=== PATIENT | female | born 1975 | race Caucasian/White ===

== ENCOUNTER 2017-05-17 13:34 | Emergency (ER) | payer OTHER, MEDICAID ==
[2017-05-17 13:45] VITALS: BP 124/83
--- NOTE | 2017-05-17 13:46 | ED Physician Documentation ---
PD HPI UPPER EXT INJURY - Stated complaint Stated Complaint: HAND INJURY - Chief complaint Chief Complaint: Trauma Ext - History obtained from History obtained from: Patient - History of Present Illness Location: Other (She hit the right hand on a piece of furniture the other day. Pain was only mild until today now she has severe pain and swelling especially over the radial side carpals. Tried Percocet without relief.) Review of Systems Constitutional: reports: Reviewed and negative Throat: reports: Reviewed and negative Cardiac: reports: Reviewed and negative Respiratory: reports: Reviewed and negative PD PAST MEDICAL HISTORY - Past Medical History Cardiovascular: None Respiratory: None Neuro: None Endocrine/Autoimmune: None GI: None : Chronic bladder infection HEENT: None Psych: Depression Musculoskeletal: None Derm: None - Past Surgical History Past Surgical History: Yes HEENT: Myringotomy (tubes), Tonsil/Adenoidectomy - Present Medications Home Medications: Ambulatory Orders Medication Instructions Recorded Confirmed Brexpiprazole [Rexulti] 1 mg 01/09/16 Oxycodone HCl/Acetaminophen 1 - 2 each PO Q6H PRN #14 tablet 01/09/16 05/17/17 [Percocet 5-325 mg Tablet] Venlafaxine [Effexor] 150 mg 01/09/16 Brexpiprazole [Rexulti] 1 mg PO DAILY 02/04/17 05/17/17 Terbinafine [LamISIL] 250 mg PO DAILY 02/04/17 05/17/17 Venlafaxine ER [Effexor ER] 150 mg PO DAILY 02/04/17 05/17/17 Meloxicam [Mobic] 7.5 mg PO BIDWM PRN #15 tablet 05/17/17 - Allergies Allergies/Adverse Reactions: Allergies Allergy/AdvReac Type Severity Reaction Status Date / Time ibuprofen Allergy Rash Verified 02/07/17 09:43 - Social History Does the pt smoke?: Yes Smoking Status: Current every day smoker Does the pt drink ETOH?: Yes Does the pt have substance abuse?: No - Immunizations Immunizations are current?: Yes - POLST Patient has POLST: No PD ED PE NORMAL - Vitals Vital signs reviewed: Yes - General General: Alert and oriented X 3, No acute distress - Extremities Extremities: Other (Quite tender and swollen over the dorsum of the hand proximally on the radial side with difficulty with flexion and extension at the wrist and even a lot of pain with motion of the fingers, she has normal sensation and cap refill in all the fingers.) - Neuro Neuro: Alert and oriented X 3, Normal speech - Psych Psych: Normal mood, Normal affect Results - Vitals Vitals: Vital Signs - 24 hr 05/17/17 13:38 Temperature 36.7 C Heart Rate 90 Respiratory 20 Rate Blood Pressure 124/83 H O2 Saturation 100 Oxygen O2 Source Room air - Labs Labs: Laboratory Tests 05/17/17 05/17/17 05/17/17 14:10 14:10 14:10 WBC 8.0 RBC 4.29 Hgb 13.6 Hct 38.5 MCV 89.7 MCH 31.8 H MCHC 35.4 RDW 11.9 L Plt Count 308 MPV 6.7 L Neut # 4.4 Lymph # 2.9 Kershaw # 0.5 Eos # 0.0 Baso # 0.1 Absolute Nucleated RBC 0.00 Nucleated RBC % 0.0 ESR 18 Sodium 136 Potassium 3.6 Chloride 99 L Carbon Dioxide 27 Anion Gap 10.0 BUN 12 Creatinine 0.5 Estimated GFR (MDRD) 136 Glucose 99 Calcium 9.5 Total Bilirubin 0.4 AST 17 ALT 12 Alkaline Phosphatase 52 C-Reactive Protein < 1.0 Total Protein 8.2 Albumin 4.9 Globulin 3.3 Albumin/Globulin Ratio 1.5 Lipase 23 - Rads (name of study) 3 views of the right hand Radiology: EMP read contemporaneously (Normal) Procedures - Splint (location) Thumb Spica Splint applied by: Tech Type of splint: Fiberglass, Short arm Other: Patient tolerated well, No complications, Neurovascular intact - Regional nerve block Nerve block site: Ulnar, Median, Radial Right / left: Right Nerve block anesthesia: Marcaine 0.5% Nerve block aftercare: Other (Started with the radial nerve only, that helped a lot with her pain but then increased to come pain over on the ulnar nerve distributions of the ulnar and median nerves were blocked that point.) PD MEDICAL DECISION MAKING - ED course ED course: 41-year-old woman presents with severe hand pain in the area of the carpals after a minor injury and pain was only mild at first but now severe after a 2 day delay. She was histrionic on examination but quite comfortable after a block of the 3 nerves of the hand with Marcaine. Initially only the radial nerve was blocked but then she complained of increased pain in the ulnar distribution so the other 2 nerves were blocked with excellent relief of her pain. Given the severity of her pain and on time course inflammatory markers were also checked without relevant findings. She was placed in a splint for comfort. Note made that per the INDUSTRIAL ENGINEER she has been on Suboxone recently. She did not admit this until prompted. Admits she has a history of pain medication abuse and after discussion declined home-going narcotics. Departure - Departure Disposition: , Self Care Clinical Impression: Hand sprain Qualifiers: Encounter type: initial encounter Laterality: right Qualified Code(s): S63.91XA - Sprain of unspecified part of right wrist and hand, initial encounter Condition: Good Record reviewed to determine appropriate education?: Yes Instructions: ED Sprain Hand Follow-Up: [facility] [Provider Group] Prescriptions: Meloxicam [Mobic] 7.5 mg PO BIDWM PRN #15 tablet PRN Reason: Pain Comments: As discussed, given the severity of your pain let us keep it in fiberglass and do not remove the splint until you follow-up with the orthopedic office. Call them tomorrow for an appointment. Return if worse. Keep it elevated. Discharge Date/Time: 05/17/17 15:25
[2017-05-17] MEDS ORDERED: BUPIVACAINE 0.5%-EPI 1:200000 PF 10 ML VIAL SUBQ STA (13:49)
[2017-05-17] MEDS ORDERED: BUPIVACAINE 0.5%-EPI 1:200000 PF 30 ML VIAL SUBQ STA (13:56)
[2017-05-17] MEDS ORDERED: HYDROmorphone 1 MG/ML SYRINGE IVP STA (14:01)
[2017-05-17 14:15] LABS: BASOPHILS # (AUTO) 0.1 10^3/uL (0.0-0.1); BASOPHILS % (AUTO) 0.6 %; EOSINOPHILS % (AUTO) 0.6 %; HCT - HEMATOCRIT 38.5 % (37.0-47.0); HGB - HEMOGLOBIN 13.6 g/dL (12.0-16.0); LYMPHOCYTES # (AUTO) 2.9 10^3/uL (1.5-3.5); LYMPHOCYTES % (AUTO) 36.6 %; MEAN CORPUSCULAR HEMOGLOBIN 31.8 pg (27.0-31.0); MEAN CORPUSCULAR HGB CONC 35.4 g/dL (32.0-36.0); MEAN CORPUSCULAR VOLUME 89.7 fL (81.0-99.0); MEAN PLATELET VOLUME 6.7 fL (7.9-10.8); MONOCYTES # (AUTO) 0.5 10^3/uL (0.0-1.0); MONOCYTES % (AUTO) 6.7 %; NEUTROPHILS # (AUTO) 4.4 10^3/uL (1.5-6.6); NEUTROPHILS % (AUTO) 55.5 %; RED BLOOD COUNT 4.29 10^6/uL (4.20-5.40); RED CELL DISTRIBUTION WIDTH 11.9 % (12.0-15.0)
[2017-05-17 14:30] LABS: ALBUMIN/GLOBULIN RATIO 1.5 (1.0-2.2); BILIRUBIN,TOTAL 0.4 mg/dL (0.2-1.0); BUN - BLOOD UREA NITROGEN 12 mg/dL (6-20); CALCIUM 9.5 mg/dL (8.5-10.3); CARBON DIOXIDE - CO2 27 mmol/L (21-32); CHLORIDE 99 mmol/L (101-111); CREATININE 0.5 mg/dL (0.4-1.0); GFR - MDRD 136 (>89); GLUCOSE 99 mg/dL (70-100); LIPASE 23 U/L (22-51); POTASSIUM 3.6 mmol/L (3.5-5.0); SODIUM 136 mmol/L (135-145); TOTAL PROTEIN 8.2 g/dL (6.7-8.2)
--- NOTE | 2017-05-17 15:07 | XRAY Preliminary Report ---
Exam: XR HAND 3 VIEW RT IMPRESSION: Negative right hand [facility] SITE ID: [id number]
--- NOTE | 2017-05-17 15:10 | XRAY Report ---
EXAM: RIGHT HAND RADIOGRAPHY EXAM DATE: 05/17/2017 02:29 PM. CLINICAL HISTORY: Pain. COMPARISON: None. TECHNIQUE: 3 views. FINDINGS: Bones: Normal. No fractures or bone lesions. Joints: Normal. No subluxations. Soft Tissues: Normal. No soft tissue swelling. IMPRESSION: Negative right hand RADIA Referring Provider Line: [phone] SITE ID: [id number]
[2017-05-17] MEDS ORDERED: oxyCODONE/ACET 5/325 Prepack 4 PO ONE (16:00)
[2017-05-17] MEDS ORDERED: HYDROcod/ACET 5/325 Prepack 6 PO ONE (16:00)
== END 2017-05-17 15:25 | disposition home or self-care (01) ==
LOC: ED 13:34
DX: S63.91XA Sprain of unspecified part of right wrist and hand, initial encounter (principal); W22.03XA Walked into furniture, initial encounter; F17.200 Nicotine dependence, unspecified, uncomplicated
CPT/HCPCS: 29125; 36415; 64450; 80053; 83690; 85025; 85651; 86140; 99283

== ENCOUNTER 2017-12-06 17:19 | Outpatient (CLI) | payer OTHER, MEDICAID | END 2017-12-06 17:20 | disposition critical access hospital (66) | LOC: EMS 17:19 | PROVIDERS: ATTEND Surgery | DX: R45.851 Suicidal ideations (principal); R06.4 Hyperventilation; F32.9 Major depressive disorder, single episode, unspecified; R20.0 Anesthesia of skin | CPT/HCPCS: A0425; A0429 ==

== ENCOUNTER 2017-12-06 17:54 | Emergency (ER) | payer OTHER, MEDICAID ==
[2017-12-06 18:49] LABS: ALBUMIN 4.3 g/dL (3.2-5.5); ALBUMIN/GLOBULIN RATIO 1.1 (1.0-2.2); ALKALINE PHOSPHATASE 53 IU/L (42-121); ALT ALANINE AMINOTRANSFERASE 15 IU/L (10-60); AST ASPARTATE AMINOTRANSFERASE 19 IU/L (10-42); BUN - BLOOD UREA NITROGEN 12 mg/dL (6-20); CALCIUM 9.5 mg/dL (8.5-10.3); CARBON DIOXIDE - CO2 22 mmol/L (21-32); CHLORIDE 105 mmol/L (101-111); CREATININE 0.7 mg/dL (0.4-1.0); GFR - MDRD 92 (>89); GLUCOSE 96 mg/dL (70-100); LIPASE 28 U/L (22-51); SALICYLATE < 6.0 mg/dL; SODIUM 137 mmol/L (135-145); TOTAL PROTEIN 8.1 g/dL (6.7-8.2)
[2017-12-06 18:50] LABS: ACETAMINOPHEN < 10 ug/mL (10-30)
[2017-12-06 20:59] LABS: BASOPHILS % (AUTO) 1.4 %; EOSINOPHILS % (AUTO) 0.1 %; HGB - HEMOGLOBIN 14.1 g/dL (12.0-16.0); LYMPHOCYTES % (AUTO) 23.7 %; MEAN CORPUSCULAR HEMOGLOBIN 30.9 pg (27.0-31.0); MEAN CORPUSCULAR HGB CONC 33.4 g/dL (32.0-36.0); MEAN CORPUSCULAR VOLUME 92.5 fL (81.0-99.0); MEAN PLATELET VOLUME 7.5 fL (7.9-10.8); NEUTROPHILS % (AUTO) 68.8 %; PLT - PLATELET COUNT 341 10^3/uL (130-450); RED BLOOD COUNT 4.55 10^6/uL (4.20-5.40); RED CELL DISTRIBUTION WIDTH 11.9 % (12.0-15.0); WHITE BLOOD COUNT 4.3 x10^3/uL (4.8-10.8)
[2017-12-06 21:01] LABS: ABNORMAL LYMPHS % (MANUAL) 0 %; BAND NEUTROPHILS % (MANUAL) 0 %
[2017-12-06 21:16] LABS: DIFFERENTIAL COMMENT MANUAL DIFFERENTIAL; LYMPHOCYTES # (MANUAL) 1.3 10^3/uL (1.5-3.5); LYMPHOCYTES % (MANUAL) 30 %; MONOCYTES # (MANUAL) 0.1 10^3/uL (0.0-1.0); NEUTROPHILS # (MANUAL) 2.8 10^3/uL (1.5-6.6); NEUTROPHILS % (MANUAL) 66 %; PLATELET ESTIMATE, MANUAL NORMAL (130-450,000) (NORMAL); PLATELET MORPHOLOGY NORMAL APPEARANCE (NORMAL); RBC MORPHOLOGY (MULTIPLE) NORMAL APPEARANCE (NORMAL)
--- NOTE | 2017-12-06 22:22 | ED Physician Documentation ---
PD HPI MHE - History obtained from History obtained from: Patient, EMS - History of Present Illness Primary symptom: Suicidal ideation, Depression, Off meds Timing - onset: Today Contributing factors: Off meds Similar symptoms before: Work up / diagnostics, Treatment Recently seen: Not recently seen <Martín Peguero - Last Filed: 12/06/17 23:23> <Maxx Kan - Last Filed: 12/07/17 14:32> - Stated complaint Stated Complaint: MHE - Chief complaint Chief Complaint: General - Additional information Additional information: Patient is a 42 year old female with a history of anxiety and depression who is presenting to the emergency department for depression and suicidal ideation. patient states that she has been changing her antidepressents. patient reports numbness and tingling and also states that she wants to kill herself. Patient states that her specific plan would be to hang herself. 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 She feels that her antidepressant has stopped working and she is on 2 different antidepressants. She is tapering down off of Effexor now getting ready to start on some lithium. She is treated by her primary care physician. Last night the patient had numbness of her hands and feet and carpopedal spasm and this has since resolved. She repeats that she feels "scared "and is suicidal with the thought that she would like to hang herself. She states that her depression is never been this bad previously. She has never been hospitalized previously. She is open to the possibility of hospitalization. She lives with her who works from 11 to midnight and hardly ever home. She has a college aged son. She indicates there is no situational depression with this and no specific incident inciting the worsening of her depression. (Maxx Kan) Review of Systems Ten Systems: 10 systems reviewed and negative Constitutional: denies: Fever, Chills Neurologic: reports: Numbness Psychiatric: reports: Depressed, Suicidal <Martín Peguero - Last Filed: 12/06/17 23:23> PD PAST MEDICAL HISTORY - Past Medical History Past Medical History: Yes Cardiovascular: None Respiratory: None Endocrine/Autoimmune: None GI: None : Chronic bladder infection HEENT: None Psych: Depression Musculoskeletal: None Derm: None - Past Surgical History Past Surgical History: Yes HEENT: Myringotomy (tubes), Tonsil/Adenoidectomy - Social History Does the pt smoke?: Yes Smoking Status: Current every day smoker Does the pt drink ETOH?: Yes Does the pt have substance abuse?: No - Immunizations Immunizations are current?: Yes - POLST Patient has POLST: No <Martín Peguero - Last Filed: 12/06/17 23:23> <Maxx Kan - Last Filed: 12/07/17 14:32> - Present Medications Home Medications: Ambulatory Orders Medication Instructions Recorded Confirmed Venlafaxine [Effexor] 37.5 mg ORAL DAILY 01/09/16 Brexpiprazole [Rexulti] 1 mg PO DAILY 02/04/17 05/17/17 Amphet/Dextr 15 mg ORAL DAILY 12/06/17 - Allergies Allergies/Adverse Reactions: Allergies Allergy/AdvReac Type Severity Reaction Status Date / Time ibuprofen AdvReac Rash Verified 12/06/17 17:58 PD ED PE NORMAL - Vitals Vital signs reviewed: Yes - General General: Alert and oriented X 3 - HEENT HEENT: Atraumatic - Cardiac Cardiac: RRR - Respiratory Respiratory: No respiratory distress - Derm Derm: Normal color, Warm and dry - Extremities Extremities: No deformity, Normal ROM s pain - Neuro Neuro: Alert and oriented X 3, No motor deficit, No sensory deficit, Normal speech Eye Opening: Spontaneous Motor: Obeys Commands Verbal: Oriented GCS Score: 15 <Martín Peguero - Last Filed: 12/06/17 23:23> - Vitals Vital signs reviewed: Yes (normal ) - General General: Alert and oriented X 3, No acute distress, Well developed/nourished - HEENT HEENT: Atraumatic, PERRL, EOMI, Other (tympanosclerosis is present bilaterally without inflamation ) - Neck Neck: Supple, no meningeal sign, No bony TTP - Cardiac Cardiac: RRR, No murmur - Respiratory Respiratory: Clear bilaterally - Abdomen Abdomen: Soft, Non tender - Back Back: No CVA TTP, No spinal TTP - Psych Psych: Other (mood is frightened affect is flat) <Maxx Kan - Last Filed: 12/07/17 14:32> PD ED PE EXPANDED - Psych Psych: Depressed, Suicidal, Tearful, Withdrawn <Martín Peguero Eyad - Last Filed: 12/06/17 23:23> Results <Martín Peguero Eyad - Last Filed: 12/06/17 23:23> <LoretaMaxx Kim - Last Filed: 12/07/17 14:32> - Vitals Vitals: Vital Signs - 24 hr 12/06/17 12/07/17 12/07/17 17:58 01:15 12:00 Temperature 36.4 C L Heart Rate 88 84 76 Respiratory 20 16 15 Rate Blood Pressure 112/78 113/75 116/73 O2 Saturation 99 98 99 Oxygen O2 Source Room air - Labs Labs: Laboratory Tests 12/06/17 12/06/17 12/07/17 18:32 18:32 08:50 WBC 4.3 L RBC 4.55 Hgb 14.1 Hct 42.1 MCV 92.5 MCH 30.9 MCHC 33.4 RDW 11.9 L Plt Count 341 MPV 7.5 L Neut # (Auto) Not Reportable Lymph # (Auto) Not Reportable Dawson # (Auto) Not Reportable Eos # (Auto) Not Reportable Baso # (Auto) Not Reportable Absolute Nucleated RBC Not Reportable Total Counted 100 Band Neuts % (Manual) 0 Abnorm Lymph % (Manual) 0 Nucleated RBC % Not Reportable Neutrophils # (Manual) 2.8 Lymphocytes # (Manual) 1.3 L Monocytes # (Manual) 0.1 Eosinophils # (Manual) 0.0 Basophils # (Manual) 0.0 Differential Comment MANUAL DIFFERENTIAL Manual Slide Review Indicated WBC Morphology NORMAL APPEARANCE Platelet Estimate NORMAL (130-450,000) Platelet Morphology NORMAL APPEARANCE RBC Morph Micro Appear NORMAL APPEARANCE Sodium 137 Potassium 3.3 L Chloride 105 Carbon Dioxide 22 Anion Gap 10.0 BUN 12 Creatinine 0.7 Estimated GFR (MDRD) 92 Glucose 96 Calcium 9.5 Total Bilirubin 1.0 AST 19 ALT 15 Alkaline Phosphatase 53 Total Protein 8.1 Albumin 4.3 Globulin 3.8 Albumin/Globulin Ratio 1.1 Lipase 28 Urine Color Urine Clarity Urine pH Ur Specific Zenia Urine Protein Urine Glucose (UA) Urine Ketones Urine Occult Blood Urine Nitrite Urine Bilirubin Urine Urobilinogen Ur Leukocyte Esterase Ur Microscopic Review Urine Culture Comments Urine HCG, Qual Salicylates < 6.0 Urine Opiates Screen NEGATIVE Ur Oxycodone Screen POSITIVE H Urine Methadone Screen NEGATIVE Ur Propoxyphene Screen NEGATIVE Acetaminophen < 10 L Ur Barbiturates Screen NEGATIVE Ur Tricyclics Screen NEGATIVE Ur Phencyclidine Scrn NEGATIVE Ur Amphetamine Screen POSITIVE H U Methamphetamines Scrn NEGATIVE U Benzodiazepines Scrn NEGATIVE Urine Cocaine Screen NEGATIVE U Cannabinoids Screen NEGATIVE Ethyl Alcohol < 5.0 12/07/17 12/07/17 08:50 08:50 WBC RBC Hgb Hct MCV MCH MCHC RDW Plt Count MPV Neut # (Auto) Lymph # (Auto) Dawson # (Auto) Eos # (Auto) Baso # (Auto) Absolute Nucleated RBC Total Counted Band Neuts % (Manual) Abnorm Lymph % (Manual) Nucleated RBC % Neutrophils # (Manual) Lymphocytes # (Manual) Monocytes # (Manual) Eosinophils # (Manual) Basophils # (Manual) Differential Comment Manual Slide Review WBC Morphology Platelet Estimate Platelet Morphology RBC Morph Micro Appear Sodium Potassium Chloride Carbon Dioxide Anion Gap BUN Creatinine Estimated GFR (MDRD) Glucose Calcium Total Bilirubin AST ALT Alkaline Phosphatase Total Protein Albumin Globulin Albumin/Globulin Ratio Lipase Urine Color YELLOW Urine Clarity CLEAR Urine pH 6.0 Ur Specific Zenia 1.025 1.025 Urine Protein NEGATIVE Urine Glucose (UA) NEGATIVE Urine Ketones >=80 H Urine Occult Blood NEGATIVE Urine Nitrite NEGATIVE Urine Bilirubin NEGATIVE Urine Urobilinogen 0.2 (NORMAL) Ur Leukocyte Esterase NEGATIVE Ur Microscopic Review NOT INDICATED Urine Culture Comments NOT INDICATED Urine HCG, Qual NEGATIVE Salicylates Urine Opiates Screen Ur Oxycodone Screen Urine Methadone Screen Ur Propoxyphene Screen Acetaminophen Ur Barbiturates Screen Ur Tricyclics Screen Ur Phencyclidine Scrn Ur Amphetamine Screen U Methamphetamines Scrn U Benzodiazepines Scrn Urine Cocaine Screen U Cannabinoids Screen Ethyl Alcohol PD MEDICAL DECISION MAKING <Martín Peguero - Last Filed: 12/06/17 23:23> - ED course Complexity details: reviewed old records, reviewed results, re-evaluated patient , considered differential, d/w patient <Maxx Kan - Last Filed: 12/07/17 14:32> - ED course ED course: 42-year-old female with history of endogenous depression has worsening of her depression and acute suicidal ideation. She has failed treatment with multiple antidepressant agents and is in the process of switching agents now. She has treatment resistant depression. (Maxx Kan) - Sepsis Event Vital Signs: Vital Signs - 24 hr 12/06/17 12/07/17 12/07/17 17:58 01:15 12:00 Temperature 36.4 C L Heart Rate 88 84 76 Respiratory 20 16 15 Rate Blood Pressure 112/78 113/75 116/73 O2 Saturation 99 98 99 Oxygen O2 Source Room air Departure <Martín Peguero - Last Filed: 12/06/17 23:23> <Maxx Kan - Last Filed: 12/07/17 14:32> - Departure Disposition: 65 Psych Hosp/Unit DC/Xfer Clinical Impression: Suicidal ideation Depression Qualifiers: Depression Type: major depressive disorder Major depression recurrence: recurrent Active/Remission status: currently active Major depression episode severity: severe Condition: Stable
[2017-12-07] MEDS ORDERED: ACETAMINOPHEN 325 MG TABLET PO STA (01:39)
--- NOTE | 2017-12-07 05:10 | ED Physician Documentation ---
ED Addendum - Addendum Addendum: 12/07/17 05:08 The patient's care was turned over to me by the off going physician, the patient currently is pending evaluation by social work. The patient was medically evaluated by the prior physician. The patient has been stable throughout the evening and has had no issues. The patient's care will be turned over to the oncoming physician Dr. Kan for final disposition per social work's recommendations.
[2017-12-07] MEDS ORDERED: LORazepam 0.5 MG TABLET PO STA ×3 (09:00→15:16)
[2017-12-07 09:19] LABS: GLUCOSE, URINE (UA) NEGATIVE (NEGATIVE); KETONES,URINE (UA) >=80 mg/dL (NEGATIVE); LEUKOCYTE ESTERASE, URINE NEGATIVE (NEGATIVE); NITRITE,URINE NEGATIVE (NEGATIVE); OCCULT BLOOD,URINE NEGATIVE (NEGATIVE); PROTEIN,URINE NEGATIVE (NEGATIVE); UROBILINOGEN,URINE 0.2 (NORMAL) E.U./dL (NORMAL)
[2017-12-07 09:20] LABS: MUDS CUTOFF CONCENTRATIONS CUTOFF CONC BELOW:
[2017-12-07 09:23] LABS: BILIRUBIN,URINE NEGATIVE (NEGATIVE); CLARITY,URINE CLEAR (CLEAR); HCG UR QUAL NEGATIVE; ICTOTEST,URINE NEGATIVE
[2017-12-07 09:31] LABS: AMPHETAMINE SCREEN,URINE POSITIVE (NEGATIVE); COCAINE SCREEN URINE NEGATIVE (NEGATIVE); METHAMPHETAMINES SCREEN, URINE NEGATIVE (NEGATIVE); OPIATE SCREEN, URINE NEGATIVE (NEGATIVE)
[2017-12-07 09:32] LABS: BENZODIAZEPINES SCREEN, URINE NEGATIVE (NEGATIVE); METHADONE SCREEN, URINE NEGATIVE (NEGATIVE); OXYCODONE SCREEN, URINE POSITIVE (NEGATIVE); PROPOXYPHENE SCREEN, URINE NEGATIVE (NEGATIVE); TRICYCLIC ANTIDEPRESSANT,URINE NEGATIVE (NEGATIVE)
[2017-12-07] MEDS ORDERED: VENLAFAXINE 37.5 MG TABLET PO STA (11:30)
[2017-12-07 12:16] VITALS: BP 116/73
== END 2017-12-07 16:21 ==
LOC: EDBD → EDUNIT# → SUPCPDRO 17:54 → ED 17:54
DX: R45.851 Suicidal ideations (principal); F32.9 Major depressive disorder, single episode, unspecified
CPT/HCPCS: 36415; 80053; 80306; 80307; 80320; 80329; 81003; 81025; 83690; 85025; 99283; 99284; A9270; 81001; 87086

== ENCOUNTER 2018-01-25 14:12 | Outpatient (CLI) | payer OTHER ==
[2018-01-25 17:33] LABS: LITHIUM 0.96 mmol/L
== END 2018-01-25 14:13 | disposition home or self-care (01) ==
LOC: LAB.F 14:12
PROVIDERS: ATTEND Nurse Practitioner Family
DX: F31.9 Bipolar disorder, unspecified (principal); Z79.899 Other long term (current) drug therapy
CPT/HCPCS: 36415; 80178

== ENCOUNTER 2018-02-16 02:56 | Emergency (ER) | payer OTHER ==
--- NOTE | 2018-02-16 04:04 | ED Physician Documentation ---
History of Present Illness - Stated complaint Stated Complaint: MED WITHDRAWAL - Chief complaint Chief Complaint: General - History obtained from History obtained from: Patient - History of Present Illness Timing: Today Improved by: nothing Worsened by: nothing - Additonal information Additional information: patient states she has been using fentanyl, obtained on the street, for approximately the past week. She said she saw a doctor in a clinic in [place] yesterday, was prescribed Suboxone, took first dose approximately 130 this morning. She says I think I took it too early, Im in acute withdrawal. She complains of generalized anxiety, agitation, insomnia. Of note, she presents with a friend who is also registered at this time as an emergency department patient for the exact same HPI. Review of Systems Constitutional: reports: Chills, Myalgias, Sweats Cardiac: reports: Reviewed and negative Respiratory: reports: Reviewed and negative GI: denies: Abdominal Pain, Nausea, Vomiting, Diarrhea Neurologic: denies: Altered mental status, Headache Psychiatric: reports: Anxiety, Insomnia. denies: Suicidal, Hallucinations, Delusions PD PAST MEDICAL HISTORY - Past Medical History Cardiovascular: None Respiratory: None Endocrine/Autoimmune: None GI: None : Chronic bladder infection HEENT: None Psych: Depression Musculoskeletal: None Derm: None - Past Surgical History Past Surgical History: Yes HEENT: Myringotomy (tubes), Tonsil/Adenoidectomy - Present Medications Home Medications: Ambulatory Orders Medication Instructions Recorded Confirmed Venlafaxine [Effexor] 37.5 mg ORAL DAILY 01/09/16 Brexpiprazole [Rexulti] 1 mg PO DAILY 02/04/17 05/17/17 Amphet/Dextr 15 mg ORAL DAILY 12/06/17 LORazepam [Lorazepam] 1 - 2 mg PO TID PRN #14 tablet 02/16/18 - Allergies Allergies/Adverse Reactions: Allergies Allergy/AdvReac Type Severity Reaction Status Date / Time ibuprofen AdvReac Rash Verified 02/16/18 03:15 - Social History Does the pt smoke?: Yes Smoking Status: Current every day smoker Does the pt drink ETOH?: Yes Does the pt have substance abuse?: Yes Substance Use and Type: Other - Immunizations Immunizations are current?: Yes - POLST Patient has POLST: No PD ED PE NORMAL - Vitals Vital signs reviewed: Yes - General General: Alert and oriented X 3, Well developed/nourished, Other (appears very anxious, alternates between hypokinetic and then thrashing briefly.) - HEENT HEENT: PERRL, EOMI, Moist mucous membranes - Cardiac Cardiac: RRR, No murmur - Respiratory Respiratory: No respiratory distress, Clear bilaterally - Abdomen Abdomen: Soft, Non tender - Neuro Neuro: Alert and oriented X 3, Normal speech Eye Opening: Spontaneous Motor: Obeys Commands Verbal: Oriented GCS Score: 15 Results - Vitals Vitals: Oxygen O2 Source Room air PD MEDICAL DECISION MAKING - ED course Complexity details: considered differential, d/w patient ED course: given IM ativan, po clonidine with excellent results. on reevaluation, she is drowsy but arousable to verbal. she feels well enough for discharge, NAD, seems appreciative and comfortable with plan. she did not bargain or argue over medications nor dosing. - Sepsis Event Vital Signs: Oxygen O2 Source Room air Departure - Departure Disposition: 01 Home, Self Care Clinical Impression: Withdrawal from opioids Condition: Good Instructions: ED Withdrawal Narcotic Follow-Up: [facility] [Provider Group] [facility] [Provider Group] Prescriptions: LORazepam [Lorazepam] 1 - 2 mg PO TID PRN #14 tablet PRN Reason: Anxiety Discharge Date/Time: 02/16/18 06:20
[2018-02-16] MEDS ORDERED: cloNIDine 0.1 MG TABLET PO STA (04:12)
[2018-02-16] MEDS ORDERED: LORazepam 2 MG/ML VIAL IM STA (04:13)
[2018-02-16 06:40] VITALS: BP 106/76
== END 2018-02-16 06:20 | disposition home or self-care (01) ==
LOC: ED 02:56
DX: F11.23 Opioid dependence with withdrawal (principal); F17.200 Nicotine dependence, unspecified, uncomplicated
CPT/HCPCS: 96372; 99283; A9270; J2060

== ENCOUNTER 2018-05-04 22:26 | Emergency (ER) | payer OTHER, MEDICAID ==
--- NOTE | 2018-05-04 22:39 | ED Physician Documentation ---
History of Present Illness - Stated complaint Stated Complaint: POSS WITHDRAWAL - Chief complaint Chief Complaint: MHE - Additonal information Additional information: 42-year-old female presents the emergency department complaining of anxiety secondary to feeling like she is going through withdrawal. The patient takes Suboxone daily and attempted to get high with fentanyl this evening. The patient reports now being in withdrawal. The patient reports feeling very anxious and like her insides are too hot. Going through withdrawal makes the patient feels suicidal. Symptoms are described as moderate. No other associated symptoms. No relieving factors. Review of Systems Constitutional: denies: Fever, Chills Eyes: denies: Discharge Ears: denies: Ear pain Nose: denies: Congestion Throat: denies: Dental pain / toothache, Oral lesions / sores Respiratory: denies: Cough GI: reports: Nausea : denies: Dysuria Musculoskeletal: denies: Neck pain Neurologic: denies: Generalized weakness Psychiatric: reports: Suicidal, Anxiety PD PAST MEDICAL HISTORY - Past Medical History Cardiovascular: None Respiratory: None Endocrine/Autoimmune: None GI: None : Chronic bladder infection HEENT: None Psych: Depression Musculoskeletal: None Derm: None - Past Surgical History Past Surgical History: Yes HEENT: Myringotomy (tubes), Tonsil/Adenoidectomy - Present Medications Home Medications: Ambulatory Orders Medication Instructions Recorded Confirmed Venlafaxine [Effexor] 37.5 mg ORAL DAILY 01/09/16 Brexpiprazole [Rexulti] 1 mg PO DAILY 02/04/17 05/17/17 Amphet/Dextr 15 mg ORAL DAILY 12/06/17 LORazepam [Lorazepam] 1 - 2 mg PO TID PRN #14 tablet 02/16/18 - Allergies Allergies/Adverse Reactions: Allergies Allergy/AdvReac Type Severity Reaction Status Date / Time ibuprofen AdvReac Rash Verified 05/04/18 22:34 - Social History Does the pt smoke?: Yes Smoking Status: Current every day smoker Does the pt drink ETOH?: Yes Does the pt have substance abuse?: Yes - Immunizations Immunizations are current?: Yes - POLST Patient has POLST: No PD ED PE NORMAL - General General: Alert and oriented X 3 - HEENT HEENT: Atraumatic, PERRL, EOMI, Ears normal - Neck Neck: Supple, no meningeal sign - Cardiac Cardiac: RRR, Strong equal pulses - Respiratory Respiratory: No respiratory distress - Abdomen Abdomen: Soft, Non tender - Derm Derm: Normal color - Extremities Extremities: No deformity - Neuro Neuro: Alert and oriented X 3, fibrous wallboard inspector 2-12 intact, No motor deficit, Normal speech PD ED PE EXPANDED - Psych Psych: Anxious, Agitated, Pressured speech Results - Vitals Vitals: Vital Signs - 24 hr 05/04/18 22:29 Temperature 36.2 C L Heart Rate 100 Respiratory 24 Rate Blood Pressure 142/95 H O2 Saturation 100 Oxygen O2 Source Room air - Labs Labs: Laboratory Tests 05/04/18 05/04/18 05/04/18 23:00 23:00 23:00 WBC 8.0 RBC 5.11 Hgb 15.9 Hct 46.3 MCV 90.5 MCH 31.0 MCHC 34.3 RDW 12.0 Plt Count 314 MPV 6.7 L Neut # (Auto) 3.8 Lymph # (Auto) 3.6 H Mclennan # (Auto) 0.5 Eos # (Auto) 0.0 Baso # (Auto) 0.1 Absolute Nucleated RBC 0.00 Nucleated RBC % 0.1 Sodium 136 Potassium 3.5 Chloride 105 Carbon Dioxide 20 L Anion Gap 11.0 BUN 16 Creatinine 0.6 Estimated GFR (MDRD) 110 Glucose 120 H Calcium 10.0 Total Bilirubin 0.6 AST 22 ALT 16 Alkaline Phosphatase 43 Total Protein 8.4 H Albumin 4.9 Globulin 3.5 Albumin/Globulin Ratio 1.4 Lipase 26 Urine Color YELLOW Urine Clarity CLEAR Urine pH 7.0 Ur Specific [place] 1.020 Urine Protein NEGATIVE Urine Glucose (UA) NEGATIVE Urine Ketones NEGATIVE Urine Occult Blood NEGATIVE Urine Nitrite NEGATIVE Urine Bilirubin NEGATIVE Urine Urobilinogen 0.2 (NORMAL) Ur Leukocyte Esterase NEGATIVE Ur Microscopic Review NOT INDICATED Urine Culture Comments NOT INDICATED Urine HCG, Qual NEGATIVE Salicylates < 6.0 Urine Opiates Screen POSITIVE H Ur Oxycodone Screen NEGATIVE Urine Methadone Screen NEGATIVE Ur Propoxyphene Screen NEGATIVE Acetaminophen < 10 L Ur Barbiturates Screen NEGATIVE Ur Tricyclics Screen NEGATIVE Ur Phencyclidine Scrn NEGATIVE Ur Amphetamine Screen NEGATIVE U Methamphetamines Scrn NEGATIVE U Benzodiazepines Scrn NEGATIVE Urine Cocaine Screen NEGATIVE U Cannabinoids Screen POSITIVE H Ethyl Alcohol < 5.0 PD MEDICAL DECISION MAKING - ED course ED course: The patient was treated in the emergency department for her withdrawal symptoms. After hydration and symptom management the patient is feeling much improved. The patient reports that she does not feel suicidal and that her suicide it was situational due to feeling withdrawals. The patient contracts for safety and does not want any further evaluation. The patient will be discharged and will follow up with her prescriber. I discussed warning signs and recommended returning for any worsening or any concerns. Departure - Departure Clinical Impression: Substance abuse, Withdrawal complaint Condition: Good Instructions: ED Withdrawal Narcotic Comments: Please follow-up with your prescribing physician Please return to the emergency department for worsening or any concerns
[2018-05-04] MEDS ORDERED: SODIUM CHLORIDE 0.9% 1,000 ML IV ONE (22:53)
[2018-05-04] MEDS ORDERED: PROMETHAZINE INJ 25 MG in SODIUM CHLORIDE 0.9% 50 ML IV STA (22:53)
[2018-05-04] MEDS ORDERED: diphenhydrAMINE INJ 50 MG/ML VIAL IVP STA (22:53)
[2018-05-04 23:09] LABS: MUDS CUTOFF CONCENTRATIONS CUTOFF CONC BELOW:
[2018-05-04 23:13] LABS: BILIRUBIN,URINE NEGATIVE (NEGATIVE); CLARITY,URINE CLEAR (CLEAR); GLUCOSE, URINE (UA) NEGATIVE (NEGATIVE); KETONES,URINE (UA) NEGATIVE (NEGATIVE); LEUKOCYTE ESTERASE, URINE NEGATIVE (NEGATIVE); NITRITE,URINE NEGATIVE (NEGATIVE); OCCULT BLOOD,URINE NEGATIVE (NEGATIVE); PROTEIN,URINE NEGATIVE (NEGATIVE); UROBILINOGEN,URINE 0.2 (NORMAL) E.U./dL (NORMAL)
[2018-05-04 23:14] LABS: HCG UR QUAL NEGATIVE
[2018-05-04 23:22] LABS: AMPHETAMINE SCREEN,URINE NEGATIVE (NEGATIVE); BENZODIAZEPINES SCREEN, URINE NEGATIVE (NEGATIVE); COCAINE SCREEN URINE NEGATIVE (NEGATIVE); METHADONE SCREEN, URINE NEGATIVE (NEGATIVE); METHAMPHETAMINES SCREEN, URINE NEGATIVE (NEGATIVE); OPIATE SCREEN, URINE POSITIVE (NEGATIVE); OXYCODONE SCREEN, URINE NEGATIVE (NEGATIVE); PROPOXYPHENE SCREEN, URINE NEGATIVE (NEGATIVE); TRICYCLIC ANTIDEPRESSANT,URINE NEGATIVE (NEGATIVE)
[2018-05-04 23:23] LABS: BASOPHILS # (AUTO) 0.1 10^3/uL (0.0-0.1); BASOPHILS % (AUTO) 1.4 %; EOSINOPHILS % (AUTO) 0.4 %; HGB - HEMOGLOBIN 15.9 g/dL (12.0-16.0); LYMPHOCYTES # (AUTO) 3.6 10^3/uL (1.5-3.5); LYMPHOCYTES % (AUTO) 44.7 %; MEAN CORPUSCULAR HGB CONC 34.3 g/dL (32.0-36.0); MEAN CORPUSCULAR VOLUME 90.5 fL (81.0-99.0); MEAN PLATELET VOLUME 6.7 fL (7.9-10.8); MONOCYTES # (AUTO) 0.5 10^3/uL (0.0-1.0); MONOCYTES % (AUTO) 5.7 %; NEUTROPHILS # (AUTO) 3.8 10^3/uL (1.5-6.6); NEUTROPHILS % (AUTO) 47.8 %; PLT - PLATELET COUNT 314 10^3/uL (130-450); RED BLOOD COUNT 5.11 10^6/uL (4.20-5.40)
[2018-05-04 23:35] LABS: ACETAMINOPHEN < 10 ug/mL (10-30); ALBUMIN 4.9 g/dL (3.2-5.5); ALBUMIN/GLOBULIN RATIO 1.4 (1.0-2.2); ALKALINE PHOSPHATASE 43 IU/L (42-121); ALT ALANINE AMINOTRANSFERASE 16 IU/L (10-60); AST ASPARTATE AMINOTRANSFERASE 22 IU/L (10-42); BILIRUBIN,TOTAL 0.6 mg/dL (0.2-1.0); BUN - BLOOD UREA NITROGEN 16 mg/dL (6-20); CARBON DIOXIDE - CO2 20 mmol/L (21-32); CHLORIDE 105 mmol/L (101-111); CREATININE 0.6 mg/dL (0.4-1.0); GFR - MDRD 110 (>89); GLUCOSE 120 mg/dL (70-100); LIPASE 26 U/L (22-51); SALICYLATE < 6.0 mg/dL; SODIUM 136 mmol/L (135-145); TOTAL PROTEIN 8.4 g/dL (6.7-8.2)
[2018-05-04] MEDS ORDERED: LORazepam 0.5 MG TABLET PO STA (23:57)
[2018-05-05 00:38] VITALS: BP 135/89
[2018-05-05 00:47] LABS: LITHIUM < 0.05 mmol/L
== END 2018-05-05 00:38 | disposition home or self-care (01) ==
LOC: ED 22:26
DX: F19.930 Other psychoactive substance use, unspecified with withdrawal, uncomplicated (principal); F17.200 Nicotine dependence, unspecified, uncomplicated
CPT/HCPCS: 36415; 80053; 80178; 80306; 80307; 80320; 80329; 81003; 81025; 83690; 85025; 96361; 96365; 96375; 99283; A9270; J1200; J7040; 81001; 87086

== ENCOUNTER 2020-07-12 15:15 | Emergency (ER) | payer MEDICAID, OTHER ==
--- NOTE | 2020-07-12 15:28 | ED Physician Documentation ---
PD HPI ALTERED MENTAL STATUS - Stated complaint Stated Complaint: MED REACTION - Chief complaint Chief Complaint: Allergic Rx - History obtained from History obtained from: Patient - History of Present Illness Timing - onset: Today, Last night Timing - duration: Days (1/2) Timing - details: Abrupt onset, Still present Quality / character: Agitated, Other (feeling restless, crawly, lightheaded, nausea (no vomiting). STates feels like when she had narcotic withdrawal in the past. Had only had one dose of her SUboxone that she brought to work yesterday. Otherwise usually takes 2 doses of 8 mg daily. DId take it today but still feeling badly.) Associated symptoms: General weakness. No: Fever, Headache, Dyspnea, Cough Contributing factors: Recent med change (had been RX Straterra about 10 days ago and took it for a week. sHe states she felt badly (nauseated, fidgety, anxious) while on it and stopped it after talking with provider. Has been off it 3 days (Today is 4th). NO change in other med doses.) Basline status: Alert and oriented X 3, Ambulatory Similar symptoms before: Diagnosis (feeling similar to narcotic or suboxone withdrawal in the past. No recent problems and has been on slowly lowering Suboxone dose for couple of years.) Recently seen: Clinic Review of Systems Constitutional: denies: Fever, Chills Nose: reports: Rhinorrhea / runny nose. denies: Congestion Throat: denies: Sore throat Cardiac: denies: Chest pain / pressure Respiratory: denies: Cough GI: reports: Nausea. denies: Abdominal Pain, Vomiting, Diarrhea Neurologic: denies: Focal weakness, Numbness, Headache Psychiatric: reports: Anxiety PD PAST MEDICAL HISTORY - Past Medical History Past Medical History: Yes Cardiovascular: None Respiratory: None Endocrine/Autoimmune: None GI: None : Chronic bladder infection HEENT: None Psych: Depression Musculoskeletal: None Derm: None - Past Surgical History Past Surgical History: Yes HEENT: Myringotomy (tubes), Tonsil/Adenoidectomy - Present Medications Home Medications: Ambulatory Orders Medication Instructions Recorded Confirmed Buprenorphine HCl/Naloxone HCl 2 each SL DAILY 07/12/20 07/12/20 [Suboxone 8-2 mg Sl tab] LORazepam [Ativan] 1 mg PO BID PRN #12 tab 07/12/20 Quetiapine Fumarate [Seroquel] 50 mg PO HS 07/12/20 07/12/20 Sertraline HCl 200 mg PO DAILY 07/12/20 07/12/20 hydrOXYzine HCL [Hydroxyzine HCl] 25 mg PO Q6H PRN #20 tab 07/12/20 - Allergies Allergies/Adverse Reactions: Allergies Allergy/AdvReac Type Severity Reaction Status Date / Time ibuprofen AdvReac Rash Verified 07/12/20 15:17 - Living Situation Living Situation: reports: Alone Living Arrangement: reports: At home - Social History Does the pt smoke?: Yes Smoking Status: Current every day smoker Does the pt drink ETOH?: Yes Does the pt have substance abuse?: Yes Substance Use and Type: Other (past history of narcotic abuse. Denies any recent illicit/unprescribed use. ) - Immunizations Immunizations are current?: Yes - POLST Patient has POLST: No PD ED PE NORMAL - Vitals Vital signs reviewed: Yes - General General: Alert and oriented X 3, No acute distress (conversant but does seem restless and akithetic. ), Well developed/nourished - HEENT HEENT: Pharynx benign - Neck Neck: Supple, no meningeal sign, No adenopathy - Cardiac Cardiac: RRR, No murmur - Respiratory Respiratory: Clear bilaterally - Abdomen Abdomen: Normal bowel sounds, Soft, Non distended - Derm Derm: Normal color, Warm and dry - Extremities Extremities: Normal ROM s pain, No edema, No calf tenderness / cord - Neuro Neuro: Alert and oriented X 3, No motor deficit, Normal speech Results - Vitals Vitals: Vital Signs - 24 hr 07/12/20 07/12/20 15:17 17:23 Temperature 36.5 C 37 C Heart Rate 92 74 Respiratory 16 16 Rate Blood Pressure 133/62 H 110/68 O2 Saturation 98 97 Oxygen O2 Source Room air - Labs Labs: Laboratory Tests 07/12/20 07/12/20 15:46 15:46 Urine Color COLORLESS Urine Clarity CLEAR Urine pH 8.0 H Ur Specific [place] 1.010 Urine Protein NEGATIVE Urine Glucose (UA) NEGATIVE Urine Ketones NEGATIVE Urine Occult Blood NEGATIVE Urine Nitrite NEGATIVE Urine Bilirubin NEGATIVE Urine Urobilinogen 0.2 (NORMAL) Ur Leukocyte Esterase NEGATIVE Ur Microscopic Review NOT INDICATED Urine Culture Comments NOT INDICATED Urine Opiates Screen NEGATIVE Ur Oxycodone Screen NEGATIVE Urine Methadone Screen NEGATIVE Ur Propoxyphene Screen NEGATIVE Ur Barbiturates Screen NEGATIVE Ur Tricyclics Screen NEGATIVE Ur Phencyclidine Scrn NEGATIVE Ur Amphetamine Screen NEGATIVE U Methamphetamines Scrn NEGATIVE U Benzodiazepines Scrn NEGATIVE Urine Cocaine Screen NEGATIVE U Cannabinoids Screen NEGATIVE PD MEDICAL DECISION MAKING - ED course Complexity details: re-evaluated patient, considered differential (she felt she was withdrawing from suboxone since she missed half of her dose yesterday. However has had normal dose today and should be doing okay. She was recently on STraterra for a week and felt badly with it, now off it for 3 days (this would be 4th). ), d/w patient ED course: I wonder if the straterra caused change in metabolism of her sertraline and Wellbutrin, as her current symptoms could fit for mild seratonin syndrome symptoms as well. Being off the straterra now, I would assume symptoms will diminish. Could decrease Sertraline for few days to QD instead of BID, then resume when feeling better. FEeling moderately or more better with ATivan and Hydroxyine IM In ER. Departure - Departure Disposition: 01 Home, Self Care Clinical Impression: Restless, Medication side effect Condition: Stable Record reviewed to determine appropriate education?: Yes Follow-Up: JANINE ALICEA PA-C [Primary Care Provider] - Prescriptions: LORazepam [Ativan] 1 mg PO BID PRN #12 tab PRN Reason: Anxiety hydrOXYzine HCL [Hydroxyzine HCl] 25 mg PO Q6H PRN #20 tab PRN Reason: Anxiety Comments: Well-hydrated. Continue your normal doses of the Suboxone. You might consider decreasing your sertraline in half for 2 or 3 days. Consideration would be if the Strattera you had taken for the week caused a change in your metabolism where the other medications are having a higher affect. It does not seem as likely to be withdrawal or side effect from the Suboxone. Your other medications, if there metabolism was affected, may be given you some of the side effects. Add lorazepam and hydroxyzine as needed for restlessness or spasms. Since you are off the Strattera now for several days, I would assume staying off of it will allow normalization of affect of all your other medicines. Recheck if not improved well over the next few days with your primary care. Discharge Date/Time: 07/12/20 17:28
[2020-07-12] MEDS ORDERED: diazePAM INJ 5 MG/ML SYRINGE IM STA ×2 (15:53→16:57)
[2020-07-12 16:07] LABS: MUDS CUTOFF CONCENTRATIONS CUTOFF CONC BELOW:
[2020-07-12 16:12] LABS: BILIRUBIN,URINE NEGATIVE (NEGATIVE); GLUCOSE, URINE (UA) NEGATIVE (NEGATIVE); KETONES,URINE (UA) NEGATIVE (NEGATIVE); LEUKOCYTE ESTERASE, URINE NEGATIVE (NEGATIVE); NITRITE,URINE NEGATIVE (NEGATIVE); OCCULT BLOOD,URINE NEGATIVE (NEGATIVE); PROTEIN,URINE NEGATIVE (NEGATIVE); UROBILINOGEN,URINE 0.2 (NORMAL) E.U./dL (NORMAL)
[2020-07-12 16:14] LABS: CLARITY,URINE CLEAR (CLEAR)
[2020-07-12 16:22] LABS: AMPHETAMINE SCREEN,URINE NEGATIVE (NEGATIVE); BENZODIAZEPINES SCREEN, URINE NEGATIVE (NEGATIVE); COCAINE SCREEN URINE NEGATIVE (NEGATIVE); METHADONE SCREEN, URINE NEGATIVE (NEGATIVE); METHAMPHETAMINES SCREEN, URINE NEGATIVE (NEGATIVE); OPIATE SCREEN, URINE NEGATIVE (NEGATIVE); OXYCODONE SCREEN, URINE NEGATIVE (NEGATIVE); PROPOXYPHENE SCREEN, URINE NEGATIVE (NEGATIVE); TRICYCLIC ANTIDEPRESSANT,URINE NEGATIVE (NEGATIVE)
[2020-07-12 17:28] VITALS: BP 110/68
== END 2020-07-12 17:28 | disposition home or self-care (01) ==
LOC: ED 15:15
DX: R45.1 Restlessness and agitation (principal); R53.1 Weakness; R11.0 Nausea; T43.215A Adverse effect of selective serotonin and norepinephrine reuptake inhibitors, initial encounter; F17.200 Nicotine dependence, unspecified, uncomplicated
CPT/HCPCS: 80306; 81003; 96372; 99283; 99284; J3410; 81001; 87086

== ENCOUNTER 2020-08-02 11:59 | Emergency (ER) | payer MEDICAID ==
[2020-08-02] MEDS ORDERED: LORazepam 2 MG/ML VIAL IVP STA ×3 (12:36→14:52)
--- NOTE | 2020-08-02 12:38 | ED Physician Documentation ---
History of Present Illness - Stated complaint Stated Complaint: NOT FEELING WELL - Chief complaint Chief Complaint: General - History obtained from History obtained from: Patient - Additonal information Additional information: 45-year-old woman is on Suboxone daily. She took her Suboxone this morning and for unknown reasons despite it not being any different than usual she feels restless and agitated. She had a similar episode last month and was seen by the esteemed Dr. Nielsen, he noted that she had been on Strattera at the time and it was felt that maybe she had mild serotonin syndrome from that. She is not on Strattera now and she has had no other recent medication changes. Review of Systems Constitutional: denies: Fever, Chills Ears: reports: Reviewed and negative Nose: reports: Reviewed and negative Throat: reports: Reviewed and negative Cardiac: reports: Reviewed and negative Respiratory: reports: Reviewed and negative PD PAST MEDICAL HISTORY - Past Medical History Cardiovascular: None Respiratory: None Endocrine/Autoimmune: None GI: None : Chronic bladder infection HEENT: None Psych: Depression Musculoskeletal: None Derm: None - Past Surgical History Past Surgical History: Yes HEENT: Myringotomy (tubes), Tonsil/Adenoidectomy - Present Medications Home Medications: Ambulatory Orders Medication Instructions Recorded Confirmed Buprenorphine HCl/Naloxone HCl 2 each SL DAILY 07/12/20 07/12/20 [Suboxone 8-2 mg Sl tab] LORazepam [Ativan] 1 mg PO BID PRN #12 tab 07/12/20 Quetiapine Fumarate [Seroquel] 50 mg PO HS 07/12/20 07/12/20 Sertraline HCl 200 mg PO DAILY 07/12/20 07/12/20 hydrOXYzine HCL [Hydroxyzine HCl] 25 mg PO Q6H PRN #20 tab 07/12/20 LORazepam [Ativan] 1 mg PO TID PRN #7 tablet 08/02/20 - Allergies Allergies/Adverse Reactions: Allergies Allergy/AdvReac Type Severity Reaction Status Date / Time ibuprofen AdvReac Rash Verified 08/02/20 12:15 - Social History Does the pt smoke?: Yes Smoking Status: Current every day smoker Does the pt drink ETOH?: Yes Does the pt have substance abuse?: Yes - Immunizations Immunizations are current?: Yes - POLST Patient has POLST: No PD ED PE NORMAL - Vitals Vital signs reviewed: Yes - General General: Alert and oriented X 3, Other (She is restless and akathetic with involuntary motions of the lower extremities.) - HEENT HEENT: Other (pupils are midpoint) - Neck Neck: Supple, no meningeal sign, No bony TTP - Cardiac Cardiac: No murmur, Other (Tachycardia, regular) - Respiratory Respiratory: No respiratory distress - Abdomen Abdomen: Non tender - Back Back: No CVA TTP, No spinal TTP - Extremities Extremities: Other (About 4-5 beats of clonus at the ankles, a lot of involuntary motion consistent with akathisia.) - Neuro Neuro: Alert and oriented X 3, Normal speech Results - Vitals Vitals: Vital Signs - 24 hr 08/02/20 08/02/20 08/02/20 12:10 12:53 14:15 Temperature 36.2 C L 36.9 C Heart Rate 125 H 87 90 Respiratory 20 9 L Rate Blood Pressure 183/154 H 127/75 92/52 L O2 Saturation 99 98 97 08/02/20 15:37 Temperature Heart Rate 90 Respiratory 18 Rate Blood Pressure 124/74 O2 Saturation 99 Oxygen O2 Source Room air - Labs Labs: Laboratory Tests 08/02/20 08/02/20 12:47 12:50 Sodium 139 Potassium 3.4 L Chloride 105 Carbon Dioxide 19 L Anion Gap 15.0 H BUN 16 Creatinine 0.7 Estimated GFR (MDRD) 90 Glucose 142 H Calcium 9.8 Total Creatine Kinase 109 Urine Color YELLOW Urine Clarity CLEAR Urine pH >=9.0 H Ur Specific [place] 1.010 Urine Protein TRACE Urine Glucose (UA) NEGATIVE Urine Ketones 15 H Urine Occult Blood NEGATIVE Urine Nitrite NEGATIVE Urine Bilirubin NEGATIVE Urine Urobilinogen 0.2 (NORMAL) Ur Leukocyte Esterase NEGATIVE Ur Microscopic Review NOT INDICATED Urine Culture Comments NOT INDICATED Urine HCG, Qual NEGATIVE Urine Opiates Screen NEGATIVE Ur Oxycodone Screen NEGATIVE Urine Methadone Screen NEGATIVE Ur Propoxyphene Screen NEGATIVE Ur Barbiturates Screen NEGATIVE Ur Tricyclics Screen POSITIVE H Ur Phencyclidine Scrn NEGATIVE Ur Amphetamine Screen NEGATIVE U Methamphetamines Scrn NEGATIVE U Benzodiazepines Scrn NEGATIVE Urine Cocaine Screen NEGATIVE U Cannabinoids Screen NEGATIVE Ethyl Alcohol < 5.0 PD MEDICAL DECISION MAKING - ED course ED course: 45-year-old woman presents with akathisia, serotonin syndrome considered less likely. She was medicated with Ativan and subsequently Benadryl per her request. She was still fidgety and hyperdynamic albeit not hyperreflexic at that juncture. After divided doses of medication she requested discharge. Departure - Departure Disposition: 01 Home, Self Care Clinical Impression: Akathisia Condition: Good Record reviewed to determine appropriate education?: Yes Instructions: ED Drug React Dystonic Adverse Prescriptions: LORazepam [Ativan] 1 mg PO TID PRN #7 tablet PRN Reason: Anxiety Comments: Not clear why you developed an akathisia today since you have not changed her meds. Follow-up with your psychiatric provider, next available appointment.
[2020-08-02 12:58] LABS: MUDS CUTOFF CONCENTRATIONS CUTOFF CONC BELOW:
[2020-08-02 13:00] LABS: BILIRUBIN,URINE NEGATIVE (NEGATIVE); GLUCOSE, URINE (UA) NEGATIVE (NEGATIVE); KETONES,URINE (UA) 15 mg/dL (NEGATIVE); LEUKOCYTE ESTERASE, URINE NEGATIVE (NEGATIVE); NITRITE,URINE NEGATIVE (NEGATIVE); OCCULT BLOOD,URINE NEGATIVE (NEGATIVE); PH,URINE >=9.0 PH (5.0-7.5); PROTEIN,URINE TRACE mg/dL (NEGATIVE); UROBILINOGEN,URINE 0.2 (NORMAL) E.U./dL (NORMAL)
[2020-08-02 13:02] LABS: BUN - BLOOD UREA NITROGEN 16 mg/dL (6-20); CALCIUM 9.8 mg/dL (8.5-10.3); CARBON DIOXIDE - CO2 19 mmol/L (21-32); CHLORIDE 105 mmol/L (101-111); CK- CREATINE KINASE 109 IU/L (22-269); CREATININE 0.7 mg/dL (0.4-1.0); ETOH - ETHANOL < 5.0 mg/dL; GFR - MDRD 90 (>89); GLUCOSE 142 mg/dL (70-100); POTASSIUM 3.4 mmol/L (3.5-5.0); SODIUM 139 mmol/L (135-145)
[2020-08-02 13:04] LABS: CLARITY,URINE CLEAR (CLEAR); HCG UR QUAL NEGATIVE
[2020-08-02 13:32] LABS: AMPHETAMINE SCREEN,URINE NEGATIVE (NEGATIVE); BARBITURATE SCREEN,UR NEGATIVE (NEGATIVE); BENZODIAZEPINES SCREEN, URINE NEGATIVE (NEGATIVE); COCAINE SCREEN URINE NEGATIVE (NEGATIVE); METHADONE SCREEN, URINE NEGATIVE (NEGATIVE); METHAMPHETAMINES SCREEN, URINE NEGATIVE (NEGATIVE); OPIATE SCREEN, URINE NEGATIVE (NEGATIVE); OXYCODONE SCREEN, URINE NEGATIVE (NEGATIVE); PROPOXYPHENE SCREEN, URINE NEGATIVE (NEGATIVE); THC CANNABINOID SCREEN, URINE NEGATIVE (NEGATIVE); TRICYCLIC ANTIDEPRESSANT,URINE POSITIVE (NEGATIVE)
[2020-08-02] MEDS ORDERED: diphenhydrAMINE INJ 50 MG/ML VIAL IVP STA (13:52)
[2020-08-02] MEDS ORDERED: BENZTROPINE 2 MG/2 ML VIAL IVP STA ×2 (14:52→15:48)
[2020-08-02 17:13] VITALS: BP 127/90
== END 2020-08-02 17:12 | disposition home or self-care (01) ==
LOC: ED 11:59
DX: G25.71 Drug induced akathisia (principal); F17.200 Nicotine dependence, unspecified, uncomplicated
CPT/HCPCS: 36415; 80048; 80306; 80320; 81003; 81025; 82550; 96374; 96375; 96376; 99283; 99284; J0515; J1200; J2060; 81001; 87086

== ENCOUNTER 2020-08-17 11:01 | Emergency (ER) | payer MEDICAID ==
[2020-08-17] MEDS ORDERED: LORazepam 2 MG/ML VIAL IM STA ×2 (11:29→12:37)
[2020-08-17] MEDS ORDERED: diphenhydrAMINE INJ 50 MG/ML VIAL IM STA (11:29)
[2020-08-17 12:22] LABS: MUDS CUTOFF CONCENTRATIONS CUTOFF CONC BELOW:
[2020-08-17 12:23] LABS: BILIRUBIN,URINE NEGATIVE (NEGATIVE); GLUCOSE, URINE (UA) NEGATIVE (NEGATIVE); KETONES,URINE (UA) 15 mg/dL (NEGATIVE); LEUKOCYTE ESTERASE, URINE NEGATIVE (NEGATIVE); NITRITE,URINE NEGATIVE (NEGATIVE); OCCULT BLOOD,URINE NEGATIVE (NEGATIVE); PROTEIN,URINE NEGATIVE (NEGATIVE); UROBILINOGEN,URINE 0.2 (NORMAL) E.U./dL (NORMAL)
[2020-08-17 12:25] LABS: CLARITY,URINE CLEAR (CLEAR); HCG UR QUAL NEGATIVE
--- NOTE | 2020-08-17 12:27 | ED Physician Documentation ---
History of Present Illness - Stated complaint Stated Complaint: FACE NUMBNESS - Chief complaint Chief Complaint: Allergic Rx - History obtained from History obtained from: Patient - History of Present Illness Timing: Today - Additonal information Additional information: 45-year-old female who is has been on Suboxone for the past 2 years and clean has slipped and she has began using narcotic analgesic again. She has been doing this for about 3 weeks off and on and she has found that when she stops her Suboxone she will take the narcotic analgesic and when she takes her Suboxone again she feels these symptoms. She feels horrible. She has nausea numbness to her fingertips and lips shakiness and difficulty concentrating. She presents here today with her who pulls me aside to let me know that he believes this is what has been happening. I have eventually confronted the patient with this and she corroborates the story. Review of Systems Constitutional: denies: Fever Eyes: denies: Decreased vision Ears: denies: Ear pain Nose: denies: Congestion Throat: denies: Sore throat Cardiac: denies: Chest pain / pressure, Palpitations Respiratory: denies: Dyspnea, Cough GI: reports: Nausea. denies: Abdominal Pain, Vomiting : denies: Dysuria, Frequency Skin: denies: Rash Musculoskeletal: denies: Neck pain, Back pain Neurologic: reports: Numbness. denies: Generalized weakness, Focal weakness, Difficulty speaking, Headache, Head injury, LOC PD PAST MEDICAL HISTORY - Past Medical History Past Medical History: Yes Cardiovascular: None Respiratory: None Endocrine/Autoimmune: None GI: None : Chronic bladder infection HEENT: None Psych: Depression Musculoskeletal: None Derm: None - Past Surgical History Past Surgical History: Yes HEENT: Myringotomy (tubes), Tonsil/Adenoidectomy - Present Medications Home Medications: Ambulatory Orders Medication Instructions Recorded Confirmed Buprenorphine HCl/Naloxone HCl 2 each SL DAILY 07/12/20 07/12/20 [Suboxone 8-2 mg Sl tab] LORazepam [Ativan] 1 mg PO BID PRN #12 tab 07/12/20 Quetiapine Fumarate [Seroquel] 50 mg PO HS 07/12/20 07/12/20 Sertraline HCl 200 mg PO DAILY 07/12/20 07/12/20 hydrOXYzine HCL [Hydroxyzine HCl] 25 mg PO Q6H PRN #20 tab 07/12/20 LORazepam [Ativan] 1 mg PO TID PRN #7 tablet 08/02/20 - Allergies Allergies/Adverse Reactions: Allergies Allergy/AdvReac Type Severity Reaction Status Date / Time ibuprofen AdvReac Rash Verified 08/17/20 11:15 - Social History Does the pt smoke?: Yes Smoking Status: Current every day smoker Does the pt drink ETOH?: Yes Does the pt have substance abuse?: Yes - Immunizations Immunizations are current?: Yes - POLST Patient has POLST: No PD ED PE NORMAL - Vitals Vital signs reviewed: Yes (Cardiac and hypertensive) - General General: Alert and oriented X 3, Well developed/nourished, Other (Uncomfortable female is pacing in her room appears shaky) - HEENT HEENT: Atraumatic, PERRL, EOMI - Neck Neck: Supple, no meningeal sign, No bony TTP - Cardiac Cardiac: No murmur, Other (Tachycardic to 100) - Respiratory Respiratory: No respiratory distress, Clear bilaterally - Abdomen Abdomen: Soft, Non tender - Back Back: No CVA TTP, No spinal TTP - Derm Derm: Normal color, Warm and dry, No rash - Extremities Extremities: No deformity, No edema - Neuro Neuro: Alert and oriented X 3, section cutter 2-12 intact, No motor deficit, No sensory deficit, Normal speech Eye Opening: Spontaneous Motor: Obeys Commands Verbal: Oriented GCS Score: 15 - Psych Psych: Normal mood, Normal affect Results - Vitals Vitals: Vital Signs - 24 hr 08/17/20 08/17/20 08/17/20 11:05 12:02 13:08 Temperature 36.7 C Heart Rate 108 H 103 H 85 Respiratory 24 20 17 Rate Blood Pressure 148/104 H 142/93 H O2 Saturation 99 100 100 Oxygen O2 Source Room air - Labs Labs: Laboratory Tests 08/17/20 08/17/20 11:45 11:45 Urine Color YELLOW Urine Clarity CLEAR Urine pH 7.0 Ur Specific [place] <=1.005 Urine Protein NEGATIVE Urine Glucose (UA) NEGATIVE Urine Ketones 15 H Urine Occult Blood NEGATIVE Urine Nitrite NEGATIVE Urine Bilirubin NEGATIVE Urine Urobilinogen 0.2 (NORMAL) Ur Leukocyte Esterase NEGATIVE Ur Microscopic Review NOT INDICATED Urine Culture Comments NOT INDICATED Urine HCG, Qual NEGATIVE Urine Opiates Screen NEGATIVE Ur Oxycodone Screen NEGATIVE Urine Methadone Screen NEGATIVE Ur Propoxyphene Screen NEGATIVE Ur Barbiturates Screen NEGATIVE Ur Tricyclics Screen POSITIVE H Ur Phencyclidine Scrn NEGATIVE Ur Amphetamine Screen NEGATIVE U Methamphetamines Scrn NEGATIVE U Benzodiazepines Scrn NEGATIVE Urine Cocaine Screen NEGATIVE U Cannabinoids Screen NEGATIVE PD MEDICAL DECISION MAKING - ED course Complexity details: reviewed old records, reviewed results, re-evaluated patient, considered differential, d/w patient, d/w family ED course: 45-year-old female with history of narcotic abuse has been in treatment with Suboxone and she is stopping her Suboxone to take narcotic and when she starts Suboxone again she has acute withdrawal symptoms. This is the third visit to the emergency department in 3 weeks for these symptoms and she has tried to pass these off as a side effect of her medications or a mix of her medications. Today we were able to confront the patient with this and she acknowledges that she will need help she does have a treatment center in [place] that she is identified she has been there previously it was successful. Today we have administered the patient Ativan and Benadryl she required a second dose and felt much improved was able to go home. Departure - Departure Disposition: 01 Home, Self Care Clinical Impression: Substance abuse, Medication side effect Condition: Stable Instructions: ED Narcotic Abuse, ED Withdrawal Narcotic Follow-Up: JANINE ALICEA PA-C [Primary Care Provider] - Comments: Today it appears you have used your Suboxone to close to a dose of narcotic. Follow-up with your rehabilitation center in [place]. Discharge Date/Time: 08/17/20 13:36
[2020-08-17 12:38] LABS: AMPHETAMINE SCREEN,URINE NEGATIVE (NEGATIVE); BARBITURATE SCREEN,UR NEGATIVE (NEGATIVE); BENZODIAZEPINES SCREEN, URINE NEGATIVE (NEGATIVE); COCAINE SCREEN URINE NEGATIVE (NEGATIVE); METHADONE SCREEN, URINE NEGATIVE (NEGATIVE); METHAMPHETAMINES SCREEN, URINE NEGATIVE (NEGATIVE); OPIATE SCREEN, URINE NEGATIVE (NEGATIVE); OXYCODONE SCREEN, URINE NEGATIVE (NEGATIVE); PROPOXYPHENE SCREEN, URINE NEGATIVE (NEGATIVE); THC CANNABINOID SCREEN, URINE NEGATIVE (NEGATIVE); TRICYCLIC ANTIDEPRESSANT,URINE POSITIVE (NEGATIVE)
[2020-08-17 13:09] VITALS: BP 142/93
== END 2020-08-17 13:36 | disposition home or self-care (01) ==
LOC: ED 11:01
DX: F19.10 Other psychoactive substance abuse, uncomplicated (principal); R11.0 Nausea; R20.0 Anesthesia of skin; R00.0 Tachycardia, unspecified; F17.200 Nicotine dependence, unspecified, uncomplicated
CPT/HCPCS: 80306; 81003; 81025; 96372; 99283; 99284; J1200; J2060; 81001; 87086

== ENCOUNTER 2020-12-23 08:00 | Outpatient (CLI) | payer MEDICAID | END 2020-12-23 23:59 | disposition home or self-care (01) | LOC: LAB.S 08:00 | PROVIDERS: ATTEND Physician Assistant | DX: L98.8 Other specified disorders of the skin and subcutaneous tissue (principal) | CPT/HCPCS: 87070; 87181; 87205 ==